=== PATIENT | female | born 1975 | race Two or more races ===

== ENCOUNTER → 2017-01-20 | Emergency (ER) | payer MEDICAID ==
[~2017-01-20] VITALS: Ht 157.5 cm; Wt 90.7 kg
[~2017-01-20] MED LIST: GEMFIBROZIL600 MG ORAL; GLIPIZIDE5 MG ORAL; LISINOPRIL5 MG ORAL; METFORMIN HCL500 M1 ORAL; NITROFURANTOIN100 M2 ORAL
--- NOTE | 2017-01-20 00:33 | Emergency Room Report ---
History of Present Illness General Chief Complaint: Female Urogenital Problems Source: Patient Present Illness HPI [id number] with 1-2 days dysuria, polyuria Denies nausea/vomiting, abd pain, fever/chills ? frequent UTI Denies chest pain, SOB Allergies: Coded Allergies: No Known Allergies (Unverified , 01/20/17) Patient History Past Medical History: none Past Surgical History: none Pertinent Family History: none Social History: Reports: alcohol use, drug use, smoking Last Menstrual Period: 12/31/16 Now: No : 3 Para: 3 Immunizations: UTD Reviewed Nursing Documentation: PMH: Agreed, PSxH: Agreed Nursing Documentation-PMH Hx Hypertension: Yes - high cholesterol Hx Diabetes: Yes Review of Systems All Other Systems: negative except mentioned in HPI Physical Exam Vital Signs Date Time Temp Pulse Resp B/P Pulse Ox O2 Delivery O2 Flow Rate FiO2 01/20/17 00:16 98.2 88 14 153/93 98 Room Air Sp02 EP Interpretation: reviewed, normal General Appearance: normal inspection, well appearing, no apparent distress, alert Head: normocephalic, atraumatic ENT: normal ENT inspection, hearing grossly normal, normal voice Neck: normal inspection, full range of motion, supple, no bony tend Respiratory: normal inspection, lungs clear, normal breath sounds, no respiratory distress, no retraction, no wheezing Cardiovascular #1: regular rate, rhythm, no edema Gastrointestinal: normal inspection, normal bowel sounds, non tender, soft, no guarding, no hernia Genitourinary: no CVA tenderness Musculoskeletal: normal inspection, back normal, normal range of motion, Laxmi' s Sign negative Neurologic: normal inspection, alert, oriented x3, responsive, 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, motor strength/tone normal, speech normal Psychiatric: normal inspection, judgement/insight normal, mood/affect normal Skin: normal inspection, normal color, no rash Medical Decision Making Diagnostic Impression: Primary Impression: Dysuria Additional Impression: UTI (urinary tract infection) Qualified Codes: N30.01 - Acute cystitis with hematuria ER Course UA grossly infected Not Rx macrobid DC home Last Vital Signs Date Time Temp Pulse Resp B/P Pulse Ox O2 Delivery O2 Flow Rate FiO2 01/20/17 00:16 98.2 88 14 153/93 98 Room Air Status: improved Disposition: HOME, SELF-CARE Condition: Improved Scripts Nitrofurantoin Monohyd/M-Cryst* (MACROBID 100 MG*) 100 Mg Capsule 100 MG ORAL EVERY 12 HOURS for 7 Days, #14 CAP Prov: ASIYA LIU M.D. 01/20/17 Patient Instructions: Urinary Tract Infection ASIYA LIU M.D. Jan 20, 2017 00:33
[2017-01-20 00:37] LABS: KETONES,URINE 1+ (NEGATIVE); LEUKOCYTE ESTERASE ,URINE 3+ (NEGATIVE); NITRITE,URINE NEGATIVE (NEGATIVE); PH,URINE 6 (4.5-8.0); PROTEIN,URINE 2+ (NEGATIVE); UROBILINOGEN,URINE 1 MG/DL (0.0-1.0)
[2017-01-20 00:43] LABS: APPEARANCE,URINE SLIGHTLY CLOUDY
[2017-01-20 00:50] LABS: BACTERIA,URINE FEW /HPF; SQUAMOUS EPITHELIAL CELL,UR MODERATE /LPF (NONE/OCC); WBC,URINE 40-60 /HPF (0 - 2)
[2017-01-20 01:00] VITALS: BP 141/74
== END | disposition home or self-care (01) ==
LOC: EMR 00:35
DX: N30.01 Acute cystitis with hematuria (principal); R30.0 Dysuria; F17.200 Nicotine dependence, unspecified, uncomplicated; I10 Essential (primary) hypertension; E11.9 Type 2 diabetes mellitus without complications
CPT/HCPCS: 81003; 81025; 87086; 99283

== ENCOUNTER 2018-05-02 11:43 | Emergency (ER) | payer MEDICAID ==
[~2018-05-02] VITALS: Ht 152.4 cm; Wt 89.8 kg
[2018-05-02 12:20] VITALS: BP 151/80
--- NOTE | 2018-05-02 12:23 | Emergency Room Report ---
History of Present Illness General Chief Complaint: Vomiting Source: Patient, Medical Record Present Illness HPI Patient presents with complaints of headache Reports that she's had headaches for most of her life She felt that in July she had an accident and had more increased frequency of the headaches Today she began having nausea and vomiting and presents to the ER Denies any neck pain or photophobia Pain is mainly localized to the right parietal region Denies any chest pain denies any recent trauma otherwise denies any neuropathy Allergies: Coded Allergies: No Known Allergies (Unverified , 05/02/18) Patient History Past Medical History: see triage record Pertinent Family History: none Last Menstrual Period: 04/20/18 Now: No Reviewed Nursing Documentation: PMH: Agreed; PSxH: Agreed Nursing Documentation-PMH Hx Hypertension: Yes - high cholesterol Hx Diabetes: Yes Review of Systems All Other Systems: negative except mentioned in HPI Physical Exam Vital Signs Date Time Temp Pulse Resp B/P (MAP) Pulse Ox O2 Delivery O2 Flow Rate FiO2 05/02/18 11:47 98.6 90 18 177/92 98 Room Air Sp02 EP Interpretation: reviewed, normal General Appearance: well appearing, no apparent distress Head: normocephalic, atraumatic Eyes: bilateral eye PERRL, bilateral eye EOMI ENT: hearing grossly normal, normal pharynx, TMs + canals normal, uvula midline Neck: full range of motion, supple, no meningismus, no bony tend Respiratory: lungs clear, normal breath sounds, no rhonchi, no respiratory distress, no retraction, no accessory muscle use Cardiovascular #1: normal peripheral pulses, regular rate, rhythm, no edema, no gallop, no JVD, no murmur Gastrointestinal: normal bowel sounds, non tender, soft, no mass, no organomegaly, non-distended, no guarding, no hernia, no pulsatile mass, no rebound Genitourinary: no CVA tenderness Musculoskeletal: normal inspection Neurologic: oriented x3, responsive, 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 tested, motor strength/ tone normal, sensory intact Psychiatric: mood/affect normal Skin: normal color, no rash, warm/dry, palpation normal Lymphatic: normal inspection, no adenopathy Medical Decision Making Diagnostic Impression: Primary Impression: Headache Additional Impression: Diabetes ER Course Patient presents with complaints of headache Multiple differentials considered Including infectious neurological Patient reports that she has not had any workup for this matter and has been fairly chronic Therefore initial workup including CT imaging was obtained Patient's glucose appeared to be poorly controlled she reports that she did not take her medications today Patient reports that she feels better with acute intervention at this time stable for close outpatient follow-up Labs Test 05/02/18 12:10 05/02/18 12:25 Urine HCG, Qualitative Negative (NEGATIVE) White Blood Count 7.3 K/UL (4.8-10.8) Red Blood Count 5.52 M/UL (4.20-5.40) Hemoglobin 15.3 G/DL (12.0-16.0) Hematocrit 44.7 % (37.0-47.0) Mean Corpuscular Volume 81 FL (80-99) Mean Corpuscular Hemoglobin 27.8 PG (27.0-31.0) Mean Corpuscular Hemoglobin Concent 34.3 G/DL (32.0-36.0) Red Cell Distribution Width 12.6 % (11.6-14.8) Platelet Count 243 K/UL (150-450) Mean Platelet Volume 8.8 FL (6.5-10.1) Neutrophils (%) (Auto) 74.5 % (45.0-75.0) Lymphocytes (%) (Auto) 19.0 % (20.0-45.0) Monocytes (%) (Auto) 3.1 % (1.0-10.0) Eosinophils (%) (Auto) 2.7 % (0.0-3.0) Basophils (%) (Auto) 0.8 % (0.0-2.0) Sodium Level 131 MMOL/L (136-145) Potassium Level 4.3 MMOL/L (3.5-5.1) Chloride Level 97 MMOL/L (98-107) Carbon Dioxide Level 20 MMOL/L (21-32) Anion Gap 14 mmol/L (5-15) Blood Urea Nitrogen 11 mg/dL (7-18) Creatinine 0.7 MG/DL (0.55-1.30) Estimat Glomerular Filtration Rate > 60 mL/min (>60) Glucose Level 283 MG/DL (74-106) Calcium Level 9.0 MG/DL (8.5-10.1) CT/MRI/US Diagnostic Results CT/MRI/US Diagnostic Results : Impression CT headno acute disease Last Vital Signs Date Time Temp Pulse Resp B/P (MAP) Pulse Ox O2 Delivery O2 Flow Rate FiO2 05/02/18 12:20 75 15 151/80 98 Room Air 05/02/18 11:47 98.6 Status: improved Disposition: HOME, SELF-CARE Condition: Improved Scripts Ibuprofen* (MOTRIN*) 600 Mg Tablet 600 MG ORAL Q8H PRN for For Pain, #20 TAB 0 Refills Prov: Tresa Barbosa DO 05/02/18 Additional Instructions: Patient is provided with the discharge instructions notified to follow up with primary doctor in the next 2-3 days otherwise return to the er with any worsening symptoms. Please note that this report is being documented using [employer] technology. This can lead to erroneous entry secondary to incorrect interpretation by the dictating instrument. Tresa Barbosa DO May 02, 2018 12:23
[2018-05-02] MEDS ORDERED: Ketorolac 60mg Inj IM ONE (12:30)
[2018-05-02 12:46] LABS: BASOPHILS % (AUTO) 0.8 % (0.0-2.0); EOSINOPHILS % (AUTO) 2.7 % (0.0-3.0); HEMATOCRIT 44.7 % (37.0-47.0); HEMOGLOBIN 15.3 G/DL (12.0-16.0); MEAN CORPUSCULAR VOLUME 81 FL (80-99); MONOCYTES % (AUTO) 3.1 % (1.0-10.0); NEUTROPHILS % (AUTO) 74.5 % (45.0-75.0); PLATELET COUNT 243 K/UL (150-450); RED BLOOD COUNT 5.52 M/UL (4.20-5.40); RED CELL DISTRIBUTION WIDTH 12.6 % (11.6-14.8); WHITE BLOOD COUNT 7.3 K/UL (4.8-10.8)
--- NOTE | 2018-05-02 13:09 | Diagnostic Imaging Report ---
Indications: Headache Technique: Spiral acquisitions obtained through the brain. Angled axial and coronal 5 x 5 mm slices were reconstructed. Total dose length product 1365.53 mGycm. CTDI vol(s) 70.38 mGy. Dose reduction achieved using automated exposure control Comparison: None. Findings: No intracranial hemorrhage or edema. No mass effect nor midline shift. Normal de oliveira-white differentiation. Normal-sized ventricles and extra axial CSF spaces. Intact calvarium. Visualized orbits and sinuses are unremarkable. Impression: Negative The CT scanner at [facility] is accredited by the [employer] and the scans are performed using protocols designed to limit radiation exposure to as low as reasonably achievable to attain images of sufficient resolution adequate for diagnostic evaluation.
[2018-05-02 13:34] LABS: ANION GAP 14 mmol/L (5-15); BLOOD UREA NITROGEN 11 mg/dL (7-18); CARBON DIOXIDE 20 MMOL/L (21-32); CHLORIDE 97 MMOL/L (98-107); CREATININE 0.7 MG/DL (0.55-1.30); POTASSIUM 4.3 MMOL/L (3.5-5.1); SODIUM 131 MMOL/L (136-145)
[2018-05-02] MEDS ORDERED: IBUPROFEN600 MG ORAL (13:50)
[2018-05-02 14:01] VITALS: BP 121/86
[2018-05-02 14:03] VITALS: BP 121/86
== END 2018-05-02 14:04 | disposition home or self-care (01) ==
LOC: EMR 12:25
DX: R51 Headache (principal); E11.9 Type 2 diabetes mellitus without complications; I10 Essential (primary) hypertension
CPT/HCPCS: 36415; 70450; 80048; 81025; 85025; 96372; 99283